=== PATIENT | male | born 1990 | race Caucasian/White ===

== ENCOUNTER 2017-09-21 00:18 | Emergency (ER) | payer SELFPAY ==
[~2017-09-21] VITALS: Ht 180.3 cm; Wt 90.7 kg
[2017-09-21] MEDS ORDERED: LIDOCAINE 1% INJ 50 ML (XYLOCAINE) VIAL ONE (00:44)
--- NOTE | 2017-09-21 00:46 | ED EENT ---
History of Present Illness General Stated Complaint: TOOTH PAIN Source: patient Exam Limitations: no limitations History of Present Illness Date Seen by Provider: Sep 21, 2017 Time Seen by Provider: 00:35 Initial Comments Patient present to ER by private conveyance with a significant other and chief complaint that for about 6 months now he's had some cracked teeth with history of cavities that are been filled and some feelings of been removed over time spontaneously. The last couple days however they started hurting severely and this tonight was the worst it's ever been to the point he can't sleep or stand it. He's been using [id number] Tylenol and NSAIDs. He also used some Orajel with minimal relief. His plan is to call a dentist in the morning to get them taken care of. Allergies and Home Medications Allergies Coded Allergies: No Known Drug Allergies (Unverified , 09/21/17) Home Medications No Active Prescriptions or Reported Meds Patient Home Medication List Home Medication List Reviewed: Yes Review of Systems Constitutional: No chills, No diaphoresis, No fever, No malaise Eyes: Denies Blindness, Denies Drainage Ears: Denies Dizziness, Denies Pain Nose: denies clots, denies congestion Mouth: denies clots, denies loose teeth; pain; denies bloody discharge, denies clear discharge, denies purulent discharge; other (cracked molars upper and lower left side) Throat: denies pain, denies swelling Respiratory: No cough Gastrointestinal: No nausea, No vomiting Past Rgkrmxg-Dheafe-Alqang Hx Patient Social History Alcohol Use: Occasionally Uses Recreational Drug Use: No Smoking Status: Former Smoker Type Used: Smokeless Tobacco Recent Foreign Travel: No Contact w/Someone Who Travel: No Physical Exam Vital Signs Vital Signs - First Documented 09/21/17 00:33 Temp 98.2 Pulse 64 Resp 20 B/P (MAP) 117/87 (97) Pulse Ox 100 O2 Delivery Room Air General Appearance: WD/WN, no apparent distress Eyes: bilateral eye normal inspection, bilateral eye PERRL, bilateral eye EOMI Ears: bilateral ear auricle normal, bilateral ear canal normal, bilateral ear TM normal Nose: normal inspection; No active bleeding, No discharge Mouth/Throat: other (left molars have amalgam fillings with some chipped teeth. No gingival swelling or discharge noted. Tonsils unremarkable.) Neck: non-tender, normal inspection Cardiovascular: normal peripheral pulses, regular rate, rhythm Neurologic/Psychiatric: alert, oriented x 3 Skin: normal color, warm/dry Procedures/Interventions Progress Left inferior alveolar nerve block. Using 2 cc of 1% lidocaine without epinephrine and 2 cc of 0.5% bupivacaine without epinephrine. 25-gauge 1/2 inch needle. Patient was placed in the position the coronoid process of the left mandible is palpated and the needle was introduced just over the inferior alveolar nerve where it enters the alveolar foramen and the plunger was withdrawn no blood introduced syringe so he was then injected with a total of 4 cc mixture of the Marcaine/lidocaine. The patient tolerated procedure well. Progress/Results/Core Measures My Orders Orders - RICHI AKHTAR Lidocaine 2% Viscous 15 Ml (Xylocaine Vi (09/21/17 01:00) Ketorolac Injection (Toradol Injection) (09/21/17 01:00) Lidocaine 1% Inj 50 Ml (Xylocaine 1% Inj (09/21/17 01:00) Lidocaine 1% Inj 50 Ml (Xylocaine 1% Inj (09/21/17 00:44) Vital Signs/I&O 09/21/17 00:33 Temp 98.2 Pulse 64 Resp 20 B/P (MAP) 117/87 (97) Pulse Ox 100 O2 Delivery Room Air Progress Note : Time: 00:45 Progress Note Plan to do an inferior alveolar nerve block, viscous lidocaine, ketorolac, amoxicillin and follow-up with a dentist today. Departure Impression Primary Impression: Pain, dental Additional Impression: Broken or cracked tooth, nontraumatic Disposition: 01 HOME, SELF-CARE Condition: Stable Departure-Patient Inst. Decision time for Depature: 00:55 Referrals: NO,LOCAL PHYSICIAN (PCP) Primary Care Physician Patient Instructions: Dental Pain (DC) Add. Discharge Instructions: Plan to call your dentist in the morning and set up an appointment to work on her teeth. 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 The numbing medicine should wear off in about 6 hours. Use 800 mg ibuprofen every 8 hours in addition to 1000 mg of Tylenol every 8 hours. Warm compresses to the face can be helpful. Expect results within 3-4 days of starting antibiotics. You may also apply the viscous lidocaine soaked gauze one at a time to the tops of the teeth and is holding place for about an hour to an hour and a half to do some extended relief. After you run out of the viscous lidocaine you can use Orajel in a similar fashion. Scripts Amoxicillin (Amoxicillin) 500 Mg Capsule 500 MG PO TID for 7 Days, #21 CAP 0 Refills Prov: RICHI AKHTAR 09/21/17 Work/School Note: Work Release Form Date Seen in the Emergency Department: Sep 21, 2017 Return to Work: Sep 22, 2017 RICHI AKHTAR Sep 21, 2017 00:46
[2017-09-21] MEDS ORDERED: AMOX500C2 PO (00:57)
[2017-09-21] MEDS ORDERED: KETOROLAC 30 MG/ML VIAL IM ONE (01:00)
[2017-09-21] MEDS ORDERED: LIDOCAINE 1% INJ 50 ML (XYLOCAINE) VIAL IJ ONE (01:00)
[2017-09-21] MEDS ORDERED: LIDOCAINE 2% VISCOUS 15 ML UDC PO ONE (01:00)
[2017-09-21 01:02] VITALS: BP 117/87
== END 2017-09-21 01:02 | disposition home or self-care (01) ==
LOC: ER 00:21
DX: K03.81 Cracked tooth (principal); K08 Other disorders of teeth and supporting structures; Z87.891 Personal history of nicotine dependence
CPT/HCPCS: 96372; 99284

== ENCOUNTER 2017-12-23 12:50 | Emergency (ER) | payer SELFPAY ==
[~2017-12-23] VITALS: Ht 180.3 cm; Wt 90.7 kg
[~2017-12-23 12:50] MED LIST: AMOX500C2 PO
[2017-12-23] MEDS ORDERED: LIDOCAINE 1% INJ 20 ML 20 ML VIAL INJ ONE (13:30)
[2017-12-23] MEDS ORDERED: ONDANSETRON 8 MG (ZOFRAN) ORAL DISSOLVE TAB ONE (13:44)
--- NOTE | 2017-12-23 14:12 | ED Integumentary General ---
General Chief Complaint: Skin/Wound Problems Stated Complaint: RT POINTER FINGER LAC Nursing Triage Note: PT REPORTS HE WAS WORKING ON DUCTING WHEN HE CUT THE BACK OF HIS R HAND ON SOME STEAL. History of Present Illness Date Seen by Provider: Dec 23, 2017 Time Seen by Provider: 13:30 Initial Comments Patient is a 27-year-old male who presents to the emergency room with complaints of laceration to the dorsal surface of his right hand. 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 He has a superficial 6cm laceration on his right hand. He is up-to-date on his tetanus vaccine. Timing/Duration: just prior to arrival Severity: mild Location: hands Associated Symptoms: denies symptoms Allergies and Home Medications Allergies Coded Allergies: No Known Drug Allergies (Unverified , 09/21/17) Home Medications Amoxicillin 500 Mg Capsule, 500 MG PO TID Prescribed by: RICHI AKHTAR on 09/21/17 0057 Patient Home Medication List Home Medication List Reviewed: Yes Constitutional: see HPI; No chills, No diaphoresis EENTM: no symptoms reported Respiratory: no symptoms reported Cardiovascular: no symptoms reported Gastrointestinal: see HPI; No abdominal pain, No constipation, No diarrhea Genitourinary: see HPI; No decreased output, No discharge, No dysuria Musculoskeletal: see HPI; No back pain, No gout, No joint pain Skin: see HPI, other (laceration to the right hand.) Psychiatric/Neurological: See HPI; Denies Anxiety, Denies Depressed Endocrine: See HPI; Denies Excessive Sweating, Denies Flushing, Denies Intolerance to Cold Hematologic/Lymphatic: See HPI; Denies Anemia, Denies Blood Clots All Other Systems Reviewed Negative Unless Noted: Yes Past Vxzxhwl-Jdotcw-Oqorzl Hx Past Med/Social Hx: Reviewed Nursing Past Med/Soc Hx Patient Social History Alcohol Use: Denies Use Recreational Drug Use: No Smoking Status: Former Smoker Type Used: Smokeless Tobacco Former Smoker, Quit: Feb 06, 2017 Recent Foreign Travel: No Contact w/Someone Who Travel: No Recent Infectious Disease Expo: No Recent Hopitalizations: No Physical Abuse: No Sexual Abuse: No Mistreated: No Fear: No Seasonal Allergies Seasonal Allergies: No Past Medical History Surgeries: No Respiratory: No Cardiac: No Neurological: No Genitourinary: No Gastrointestinal: No Musculoskeletal: No Endocrine: No HEENT: No Cancer: No Psychosocial: No Nursing Suicide Risk Score: 0 Integumentary: No Blood Disorders: No Family Medical History Reviewed Nursing Family Hx Physical Exam Vital Signs Vital Signs - First Documented 12/23/17 12:59 Temp 98.1 Pulse 70 Resp 16 B/P (MAP) 125/63 (83) Pulse Ox 98 Capillary Refill : Less Than 3 Seconds General Appearance: WD/WN, no apparent distress HEENT: PERRL/EOMI, normal ENT inspection, TMs normal, pharynx normal Neck: non-tender, full range of motion, supple, normal inspection Cardiovascular: regular rate, rhythm, no edema, no gallop, no JVD, no murmur Respiratory: chest non-tender, lungs clear, normal breath sounds, no respiratory distress, no accessory muscle use Gastrointestinal: normal bowel sounds, non tender, soft, no organomegaly, no pulsatile mass Back: normal inspection, no CVA tenderness, no vertebral tenderness Extremities: normal range of motion, non-tender, normal inspection, no pedal edema, no calf tenderness Neurologic/Psychiatric: alert, normal mood/affect, oriented x 3 Skin: normal color, warm/dry, other (patient has a 6 cm superficial linear laceration from the proximal interphalangeal joint to the start of the metatarsal joint on the right second finger. Patient is able to move the extremity and make a fist. No tendon or ligament involvement.) Skin Problem Location: upper extremities (right hand) Skin Problem Character: other (laceration) Lymphatic: no adenopathy Procedures/Interventions Wound Location: Upper Extremities Other Wound Location Right hand. Wound Length (cm): 6 Wound's Depth, Shape: superficial, linear Wound Explored: clean Irrigated w/ Saline (ccs): 200 Wound Debrided: minimal Suture: Prolene Suture Size: 5-0 Number of Sutures: 8 Progress The area was anesthetized with approximately 6 mL's of lidocaine. The wound was cleaned and irrigated with normal saline and Betasept. During the procedure the patient became nauseated and 8 mg Zofran sublingually was given. The wound was closed 8 simple interrupted sutures of 5-0 Prolene Progress/Results/Core Measures Results/Orders My Orders Orders - SHANTEISHA Lidocaine 1% Inj 20 Ml (Xylocaine 1% Inj (7/18/18 13:30) Ondansetron Oral Dissolve Tab (Zofran O (12/23/17 13:44) Medications Given in ED Vital Signs/I&O 12/23/17 12/23/17 12:59 14:15 Temp 98.1 Pulse 70 87 Resp 16 16 B/P (MAP) 125/63 (83) 126/75 Pulse Ox 98 98 Blood Pressure Mean: 83 Progress Progress Note : Progress Note Patient's nausea is better after administration of Zofran. Departure Impression Primary Impression: Laceration Disposition: 01 HOME, SELF-CARE Condition: Stable/Unchanged Departure-Patient Inst. Decision time for Depature: 14:10 Referrals: NO,LOCAL PHYSICIAN (PCP) Primary Care Physician Patient Instructions: Laceration Repair With Stitches (DC) Add. Discharge Instructions: Return back to emergency room in 7 days for suture removal. Wear the splint at all times. Follow-up with your doctor within 1 week for recheck. You may shower normally but do not take a bath, swim in any body of water, or do any activity that would submerge the hand in water. Watch for signs of infection such as increased pain, redness, swelling or drainage if these should develop return back to the emergency room. All discharge instructions reviewed with patient and /or family. Voiced understanding. ISHA FREY Dec 23, 2017 14:12
[2017-12-23 14:15] VITALS: BP 126/75
== END 2017-12-23 14:17 | disposition home or self-care (01) ==
LOC: EDUNIT# 12:50 → ER 12:52
DX: S61.210A Laceration without foreign body of right index finger without damage to nail, initial encounter (principal); Z87.891 Personal history of nicotine dependence; W26.8XXA Contact with other sharp object(s), not elsewhere classified, initial encounter; Y92.59 Other trade areas as the place of occurrence of the external cause; Y99.0 Civilian activity done for income or pay
CPT/HCPCS: 29130

== ENCOUNTER → 2018-04-09 | Outpatient (CLI) | payer SELFPAY | LOC: LAB 12:13 | PROVIDERS: ATTEND Obstetrics & Gynecology | DX: N46.9 Male infertility, unspecified (principal) | CPT/HCPCS: 89320 ==

== ENCOUNTER → 2023-04-16 | Outpatient (CLI) | payer OTHER ==
[~2023-04-16] VITALS: Ht 180.3 cm; Wt 79.5 kg
[~2023-04-16] MED LIST changes: +GADOTERATE 0.5 MMOL/ML (CLARISCAN) 15 ML VIAL IV ONE; +IOHEXOL 240 MGI/ML 50 ML (OMNIPAQUE) VIAL IV ONE; +LIDOCAINE 1% INJ 10 ML VIAL INJ ONE; +LIDOCAINE 1% INJ 10 ML VIAL ONE
[2023-04-16 14:18] LABS: CREATININE SERUM 0.95 MG/DL (0.60-1.30)
--- NOTE | 2023-04-16 16:44 | Diagnostic Imaging Report ---
HISTORY: Left shoulder pain. TECHNIQUE: Multiplanar multisequence MRI examination of the left shoulder is performed following intra-articular injection of a gadolinium-based contrast mixture. COMPARISON: None FINDINGS: No acute fracture seen in the left shoulder. Alignment is normal. The joint is well distended with contrast. The supraspinatus tendon is intact. The infraspinatus and teres minor tendons are intact. The subscapularis tendon is intact. No muscular atrophy is seen. The long head of the biceps tendon is normal in course and signal. The glenoid labrum appears intact. There is no paralabral cyst. The acromion has a curved undersurface. The coracoclavicular and coracoacromial ligaments are intact. The acromioclavicular joint appears normal. There is fluid signal in the soft tissues anteriorly from the recent injection. Soft tissues about the left shoulder are otherwise unremarkable. IMPRESSION: 1. No high-grade partial-thickness or full-thickness rotator cuff tear. 2. No tear seen of the left glenoid labrum Dictated by: Dictated on workstation # [id number]
--- NOTE | 2023-04-16 17:51 | Diagnostic Imaging Report ---
Left shoulder injection. Indication: Shoulder pain There are no prior studies available for comparison. FINDINGS: Following aseptic preparation of skin and administration of local anesthesia a 23-gauge needle was advanced into the left glenohumeral joint using fluoroscopic guidance. Subsequently an 11 mL mixture of Clariscan, sodium chloride and Omnipaque 240 was introduced to the joint. The patient tolerated the procedure well and was sent to the MR suite in good condition. The fluoroscopy time was 15.6 seconds. The accumulative dose (air kerma) was 34.37 mGy. IMPRESSION: There is been a successful injection of the left glenohumeral joint. MRI is pending for further study. Dictated by: Dictated on workstation # [id number]
== END ==
LOC: RAD 13:48
PROVIDERS: ATTEND Nurse Practitioner Family
DX: Z04.2 Encounter for examination and observation following work accident (principal); M75.22 Bicipital tendinitis, left shoulder; S46.812D Strain of other muscles, fascia and tendons at shoulder and upper arm level, left arm, subsequent encounter; M54.12 Radiculopathy, cervical region; X58.XXXD Exposure to other specified factors, subsequent encounter
CPT/HCPCS: 23350; 73040; 82565; 84520; C8912; 36415; 73725

== ENCOUNTER → 2023-04-20 | Outpatient (CLI) | payer OTHER ==
[~2023-04-20] MED LIST changes: -GADOTERATE 0.5 MMOL/ML (CLARISCAN) 15 ML VIAL IV ONE; -IOHEXOL 240 MGI/ML 50 ML (OMNIPAQUE) VIAL IV ONE; -LIDOCAINE 1% INJ 10 ML VIAL INJ ONE; -LIDOCAINE 1% INJ 10 ML VIAL ONE
--- NOTE | 2023-04-20 17:00 | Diagnostic Imaging Report ---
PROCEDURE: MR imaging cervical spine without contrast. TECHNIQUE: Multiplanar, multisequence MR imaging of the cervical spine was performed without contrast. INDICATION: Cervical spine pain. COMPARISON: None available. FINDINGS: Normal alignment of the cervical spine. No fracture or concerning marrow-replacing process. Cervical cord maintains normal size and signal. No extradural fluid collection. Paravertebral musculature is normal in appearance. C2-C3: Normal. C3-C4: Normal. C4-C5: Normal. C5-C6: Minimal central disc bulging does not cause spinal canal stenosis. No neuroforaminal stenosis. C6-C7: No spinal canal or neuroforaminal stenosis. C7-T1: Normal. IMPRESSION: 1. Normal cervical cord without myelitis or impingement. 2. No spinal canal or neuroforaminal stenosis. Dictated by: Dictated on workstation # [id number]
== END ==
LOC: RAD 07:51
PROVIDERS: ATTEND Family Medicine
DX: Z04.2 Encounter for examination and observation following work accident (principal); M25.612 Stiffness of left shoulder, not elsewhere classified; M54.12 Radiculopathy, cervical region; M76.22 Iliac crest spur, left hip; M25.512 Pain in left shoulder
CPT/HCPCS: 72141